=== PATIENT | female | born 1945 | race African-American/Black ===

== ENCOUNTER 2024-12-05 01:23 | Emergency (ER) | payer MEDICARE ==
[~2024-12-05] VITALS: Ht 177.8 cm; Wt 86.0 kg
[2024-12-05 01:27] VITALS: O2SAT 97
[2024-12-05 01:52] VITALS: TEMP 36.3
[2024-12-05 03:21] LABS: BASOPHILS % 1.0 % (0.0-2.0); EOSINOPHILS % 6.2 % (0.0-5.0); HEMATOCRIT. 37.6 % (36.0-48.0); HEMOGLOBIN. 12.1 g/dL (12.0-16.0); LYMPHOCYTES % 40.8 % (20.0-50.0); MEAN PLATELET VOLUME 7.6 fl (7.4-10.4); MONOCYTES % 10.1 % (2.0-8.0); NEUTROPHILS % 41.9 % (40.0-76.0); PLATELET 228 x1000/uL (130-400); RED BLOOD CELL COUNT 4.17 mill/uL (4.2-5.4); RED CELL DISTRIBUTION WIDTH 19.6 % (11.6-14.6)
[2024-12-05 03:30] LABS: CREATININE 0.9 mg/dL (0.6-1.0); UREA NITROGEN BLOOD 15 mg/dL (9-23)
[2024-12-05 03:31] LABS: TROPONIN I HIGH SENSITIVITY 12 ng/L (3.0-34)
[2024-12-05 04:18] LABS: TROPONIN I HIGH SENSITIVITY 6 ng/L (3.0-34)
[2024-12-05 05:09] VITALS: BP 137/75; PULSE 61; RESP 15; O2SAT 95
== END 2024-12-05 05:37 | disposition home or self-care (01) ==
LOC: ER 02:01
DX: R41.82 Altered mental status, unspecified (principal); I10 Essential (primary) hypertension; Z79.899 Other long term (current) drug therapy
CPT/HCPCS: 36415; 71045; 80048; 82962; 84484; 85025; 93005; 99285